=== PATIENT | male | born 1935 | race Asian ===

== ENCOUNTER 2018-07-03 19:41 | Emergency (ER) | payer MEDICARE, MEDICAID ==
[~2018-07-03] VITALS: Ht 167.6 cm; Wt 76.7 kg
[2018-07-03 19:45] VITALS: BP 134/80
--- NOTE | 2018-07-03 19:45 | NUR ---
TO BED # 11 AMBULATORY, REPORT JACLYN ALCOCER RN
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
[2018-07-03] MEDS ORDERED: traMADol 50 MG TAB PO ONE (20:25)
--- NOTE | 2018-07-03 20:35 | NUR ---
PT REFUSED TRAMADOL, MADE AWARE
[2018-07-03 20:45] VITALS: BP 124/65
== END 2018-07-03 20:45 | disposition home or self-care (01) ==
LOC: MED 19:41
DX: T63.441A Toxic effect of venom of bees, accidental (unintentional), initial encounter (principal); E11.9 Type 2 diabetes mellitus without complications; I10 Essential (primary) hypertension; Z88.1 Allergy status to other antibiotic agents; Y92.89 Other specified places as the place of occurrence of the external cause
CPT/HCPCS: 82948; 99283